=== PATIENT | male | born 1960 | race Two or more races ===

== ENCOUNTER 2024-06-02 19:28 | Inpatient (IN) | payer OTHER ==
[~2024-06-02] VITALS: Ht 162.6 cm; Wt 75.0 kg
[2024-06-02 20:29] LABS: BASOPHILS % (AUTO) 0.9 % (0.0-2.0); EOSINOPHILS % (AUTO) 3.1 % (1.0-6.0); HEMATOCRIT 26.5 % (41-53); HEMOGLOBIN 8.4 g/dL (13.5-17.5); LYMPHOCYTES # (AUTO) 1.7 K/uL (1.0-4.8); LYMPHOCYTES % (AUTO) 16.8 % (22.0-44.0); MEAN CORPUSCULAR HEMOGLOBIN 30.6 pg (26.0-34.0); MEAN CORPUSCULAR HGB CONC 31.7 G/dL (31.0-37.0); MEAN CORPUSCULAR VOLUME 97 fL (80-100); MONOCYTES # (AUTO) 0.8 K/uL (0.1-1.0); MONOCYTES % (AUTO) 8.2 % (2.0-9.0); PLATELET COUNT (AUTO) 282 K/uL (150-450); RED BLOOD CELL COUNT(AUTO) 2.75 MIL/uL (4.50-5.90); RED CELL DISTRIBUTION WIDTH 18.6 % (11.5-14.5); WHITE BLOOD COUNT (AUTO) 9.9 K/uL (4.5-11.0)
[2024-06-02 20:39] LABS: B-TYPE NATRIURETIC PEPTIDE 205 pg/mL (0-100)
[2024-06-02 20:41] LABS: ALBUMIN 1.9 g/dL (3.4-5.0); BILIRUBIN,DIRECT 0.1 mg/dL (0.00-0.20); BILIRUBIN,TOTAL 0.4 mg/dL (0.1-1.0); TOTAL PROTEIN, SERUM 5.6 g/dL (6.4-8.2)
[2024-06-02 21:03] LABS: ANION GAP 12 mmol/L (8-16); CALCIUM, TOTAL 7.3 mg/dL (8.8-10.5); CARBON DIOXIDE 23 mmol/L (22-29); CHLORIDE 104 mmol/L (98-107); CREATININE 13.54 mg/dL (0.60-1.30); GLOMERULAR FILTR. RATE CALC 4 mL/min (>60); GLUCOSE,RANDOM 99 mg/dL (70-110); SODIUM SERUM 139 mmol/L (136-145); TROPONIN I-HIGH SENSITIVITY 22 ng/L (<76)
[2024-06-02 21:05] LABS: POTASSIUM 7.6 mmol/L (3.5-5.1); UREA NITROGEN, BLOOD 122 mg/dL (7-18)
[2024-06-02] MEDS: DEXTROSE 50%-WATER 25 GM/50 ML SYRINGE IVP ONE (21:28)
[2024-06-02] MEDS: FUROSEMIDE 40 MG/4 ML VIAL IVP ONE (21:29)
[2024-06-02] MEDS: SODIUM BICARBONATE [ADULT] 8.4% 50 MEQ/50 ML SYRINGE IVP ONE (21:29)
[2024-06-02] MEDS: SODIUM POLYSTYRENE SULFONATE 15 GM/60 ML SUSPENSION BOTTLE PO ONE (21:29)
[2024-06-02] MEDS: INSULIN REGULAR, HUMAN 100 UNITS/ML IVP ONE (21:30)
[2024-06-02] MEDS ORDERED: 0.9% SODIUM CHLORIDE 5 ML NEB SOLUTION NEB ONE (21:52)
[2024-06-02] MEDS: CALCIUM GLUCONATE 1,000 MG in DEXTROSE 5%-WATER 50 ML IV ONE (21:53)
[2024-06-02] MEDS: ALBUTEROL SULFATE 2.5 MG/0.5 ML NEB SOLUTION NEB ONE (22:00)
[2024-06-02 22:05] VITALS: PULSE 91; RESP 18; O2SAT 99
[2024-06-02 23:30] VITALS: BP 176/106; PULSE 94; RESP 18; TEMP 97; O2SAT 97
[2024-06-02] MEDS ORDERED: ACETAMINOPHEN 325 MG TABLET PO PRN (23:30)
[2024-06-02] MEDS ORDERED: CloNIDine HCL 0.1 MG TABLET PO PRN (23:30)
[2024-06-02 23:50] VITALS: BP 165/104; PULSE 95; RESP 18
[2024-06-03] VITALS (7 sets, daily range): BP systolic 168–183; BP diastolic 100–111; PULSE 80–96; RESP 18–19; O2SAT 97
[2024-06-03] MEDS: HEPARIN SODIUM,PORCINE 5,000 UNITS/ML VIAL SQ SCH (00:42)
[2024-06-03] MEDS: DiphenhydrAMINE HCL 50 MG/ML VIAL IVP ONE (01:43)
[2024-06-03] MEDS ORDERED: FAMOTIDINE 20 MG TABLET PO SCH (09:00)
[2024-06-03] MEDS ORDERED: DOCUSATE SODIUM 100 MG CAPSULE PO SCH (09:00)
[2024-06-03] MEDS ORDERED: DiphenhydrAMINE HCL 50 MG/ML VIAL IVP ONE (12:00)
[2024-06-03] MEDS ORDERED: HEPARIN SODIUM,PORCINE 1,000 UNITS/ML VIAL IVP ONE (12:00)
== END 2024-06-03 03:02 | disposition left against medical advice (07) | DRG 425 ==
LOC: EMS 19:28 → EDH 23:20
PROVIDERS: ADMIT Internal Medicine; ATTEND Internal Medicine
PROC: 5A1D70Z Performance of Urinary Filtration, Intermittent, Less than 6 Hours Per Day (ICD-10-PCS; principal; 2024-06-02)
DX: E87.5 Hyperkalemia (principal); N17.9 Acute kidney failure, unspecified; D63.1 Anemia in chronic kidney disease; I12.0 Hypertensive chronic kidney disease with stage 5 chronic kidney disease or end stage renal disease; N18.6 End stage renal disease; I16.0 Hypertensive urgency; I44.30 Unspecified atrioventricular block; Z53.29 Procedure and treatment not carried out because of patient's decision for other reasons; Z91.158 Patient's noncompliance with renal dialysis for other reason; Z99.2 Dependence on renal dialysis; Z91.040 Latex allergy status
CPT/HCPCS: 71045; 80048; 80076; 83880; 84132; 84484; 85025; 87340; 90935; 93005; 94640; 99291; G0378; J0610; J1200; J1644; J1815; J1940; J3490; J7060; 36415-L1; 36415-TC; J7613